=== PATIENT | male | born 1985 | race Caucasian/White ===

== ENCOUNTER 2018-12-06 20:00 | Emergency (ER) | payer OTHER ==
[~2018-12-06] VITALS: Ht 170.2 cm; Wt 77.6 kg
[2018-12-06 20:02] VITALS: Ht 170.2 cm; Wt 77.6 kg
[2018-12-06 21:56] VITALS: BP 106/78
== END 2018-12-06 21:56 | disposition home or self-care (01) ==
LOC: ED 20:00
DX: S62.307A Unspecified fracture of fifth metacarpal bone, left hand, initial encounter for closed fracture (principal); W22.01XA Walked into wall, initial encounter; Y93.89 Activity, other specified; Y92.89 Other specified places as the place of occurrence of the external cause; Y99.8 Other external cause status